=== PATIENT | female | born 1930 | race Asian ===

== ENCOUNTER 2019-01-19 13:39 | Outpatient (CLI) | payer MEDICARE | END 2019-01-19 13:40 | disposition home or self-care (01) | LOC: ULT 13:39 | PROVIDERS: ATTEND Internal Medicine | DX: I35.1 Nonrheumatic aortic (valve) insufficiency (principal); I08.3 Combined rheumatic disorders of mitral, aortic and tricuspid valves; I35.0 Nonrheumatic aortic (valve) stenosis | CPT/HCPCS: 36415; 84443; 93306 ==

== ENCOUNTER 2019-02-17 08:16 | Outpatient (CLI) | payer MEDICARE ==
--- NOTE | 2019-02-17 08:51 | ULT ---
US Renal Bilateral STANDARD HISTORY: Gross hematuria COMPARISON: None. FINDINGS: The kidneys are bilaterally echogenic measuring 8.3 cm on the right and 9.1 seen on the lef t. No mass or hydronephrosis noted. The urinary bladder is empty. IMPRESSION: Medical renal disease.
== END 2019-02-17 08:17 | disposition home or self-care (01) ==
LOC: SCSULT 08:16
PROVIDERS: ATTEND Family Medicine
DX: R31.0 Gross hematuria (principal); N28.9 Disorder of kidney and ureter, unspecified
CPT/HCPCS: 76770

== ENCOUNTER 2019-09-06 12:46 | Outpatient (CLI) | payer MEDICARE | END 2019-09-06 12:47 | disposition home or self-care (01) | LOC: ULT 12:46 | PROVIDERS: ATTEND Internal Medicine | DX: I50.22 Chronic systolic (congestive) heart failure (principal); I08.3 Combined rheumatic disorders of mitral, aortic and tricuspid valves | CPT/HCPCS: 93306 ==